=== PATIENT | male | born 1970 | race Two or more races ===

== ENCOUNTER 2020-09-11 15:32 | Emergency (ER) | payer SELFPAY ==
[~2020-09-11] VITALS: Ht 172.7 cm; Wt 83.9 kg
[2020-09-11] MEDS ORDERED: LIDOCAINE HCL 1% LOCAL INJ 20 ML VIAL ONE (16:09)
[2020-09-11] MEDS ORDERED: LIDOCAINE HCL 1% LOCAL INJ 20 ML VIAL INJ ONE (16:15)
[2020-09-11] MEDS ORDERED: TYLENOL # 31 EA PO (16:18)
[2020-09-11] MEDS ORDERED: AUGMENTIN 875-1 EACH PO (16:18)
== END 2020-09-11 16:31 | disposition home or self-care (01) ==
LOC: ER 16:11
DX: L03.012 Cellulitis of left finger (principal)
CPT/HCPCS: 10060; 99283; J2001